=== PATIENT | female | born 1985 | race Caucasian/White ===

== ENCOUNTER 2025-02-05 07:06 | Emergency (ER) | payer MEDICAID, OTHER ==
[~2025-02-05] VITALS: Ht 160 cm; Wt 73.0 kg
[2025-02-05 07:11] VITALS: O2SAT 100
[2025-02-05] MEDS: FAMOTIDINE 20MG/2ML VIAL IV STA (07:58)
[2025-02-05] MEDS: KETOROLAC 30MG/ML VIAL IV STA (07:58)
[2025-02-05] MEDS: ONDANSETRON HCL 4MG/2ML INJ IV STA (07:58)
[2025-02-05] MEDS: SODIUM CHLORIDE 0.9% 1,000 ML IV ONE (07:58)
[2025-02-05 08:28] LABS: BASOPHILS % 0.2 % (0.0-2.0); EOSINOPHILS % 0.8 % (0.0-5.0); HEMATOCRIT. 43.6 % (36.0-48.0); HEMOGLOBIN. 15.4 g/dL (12.0-16.0); LYMPHOCYTES % 12.8 % (20.0-50.0); MEAN CORPUSCULAR HEMOGLOBIN 34.2 pg (28.0-32.0); MEAN CORPUSCULAR HGB CONC 35.3 g/dL (31.0-37.0); MEAN CORPUSCULAR VOLUME 96.7 fL (81.0-99.0); MEAN PLATELET VOLUME 7.4 fl (7.4-10.4); MONOCYTES % 2.4 % (2.0-8.0); NEUTROPHILS % 83.8 % (40.0-76.0); PLATELET 385 x1000/uL (130-400); RED BLOOD CELL COUNT 4.51 mill/uL (4.2-5.4); RED CELL DISTRIBUTION WIDTH 13.8 % (11.6-14.6)
[2025-02-05 08:45] LABS: CHLORIDE 98 mEq/L (98-107); SODIUM 136 mEq/L (136-145)
[2025-02-05 08:46] LABS: CARBON DIOXIDE 25 mEq/L (21-32)
[2025-02-05 08:47] LABS: CALCIUM 9.2 mg/dL (8.7-10.4); INR 0.9; PROTHROMBIN TIME 10.2 sec (9.6-11.0)
[2025-02-05 08:51] LABS: CREATININE 0.7 mg/dL (0.6-1.0); GLUCOSE 180 mg/dL (70-105)
[2025-02-05 08:52] LABS: UREA NITROGEN BLOOD 8 mg/dL (9-23)
[2025-02-05 08:53] LABS: ALANINE AMINOTRANSFERASE 49 IU/L (10-49); ALBUMIN 4.5 g/dL (3.2-4.8); ASPARTATE AMINOTRANSFERASE 34 IU/L (<34)
[2025-02-05 08:54] LABS: BILIRUBIN DIRECT 0.2 mg/dL (<=3.0); BILIRUBIN TOTAL 0.7 mg/dL (0.1-1.0); PROTEIN TOTAL 7.7 g/dL (6.0-8.3)
[2025-02-05 08:56] LABS: HCG SCREEN NEGATIVE
[2025-02-05 09:09] LABS: POTASSIUM 2.8 mEq/L (3.5-5.1)
[2025-02-05] MEDS: MORPHINE SULFATE 4 MG/ML INJ (FOR IV/IM USE) IV ONE (10:23)
[2025-02-05] MEDS: KCL 10MEQ/50ML PREMIX 50 ML IV SCH (10:23)
[2025-02-05 11:06] LABS: CLARITY URINE CLEAR (CLEAR); COLOR URINE YELLOW (YELLOW); GLUCOSE URINE TRACE (NEGATIVE); KETONES URINE 1+ (NEGATIVE); LEUKOCYTE ESTERASE URINE TRACE (NEGATIVE); NITRITE URINE NEGATIVE (NEGATIVE); OCCULT BLOOD URINE 3+ (NEGATIVE); PH URINE 5.5 (4.5-8.0); PROTEIN URINE 2+ (NEGATIVE); SPECIFIC GRAVITY URINE 1.024 (1.005-1.030); UROBILINOGEN URINE 0.2 E.U./dL (0.2-1.0)
[2025-02-05 11:17] LABS: BACTERIA URINE TRACE; SQUAMOUS EPITHELIAL CELL URINE 2+ /lpf (RARE/1+); YEAST URINE NONE SEEN
[2025-02-05 12:02] VITALS: BP 11/78; PULSE 104; RESP 18; TEMP 36.7; O2SAT 98
== END 2025-02-05 12:09 | disposition short-term general hospital (02) ==
LOC: ER 07:06
DX: K85.90 Acute pancreatitis without necrosis or infection, unspecified (principal); E87.6 Hypokalemia; I10 Essential (primary) hypertension; Z79.899 Other long term (current) drug therapy
CPT/HCPCS: 80076; 80048; 81003; 84703; 83690; 85025; 85610; 36415; 76705; 96361; 96365; 96375; 99291; J3490; J1885; J2405; J3480; J2270; J7030; Z7610; A4606